=== PATIENT | male | born 1985 | race Caucasian/White ===

== ENCOUNTER → 2022-06-25 | Day surgery (SDC) | payer BC ==
[~2022-06-25] MED LIST: CREATINE100 GM PO; MULTI-VITAMIN1 EACH PO; PROPOFOL IV EMULSION 50 ML IV ONE
[2022-06-25 10:00] VITALS: BP 115/60
== END | disposition home or self-care (01) ==
LOC: OR 06:56
PROVIDERS: ATTEND Internal Medicine Gastroenterology
DX: Z12.11 Encounter for screening for malignant neoplasm of colon (principal); K57.30 Diverticulosis of large intestine without perforation or abscess without bleeding; K64.8 Other hemorrhoids; Z71.3 Dietary counseling and surveillance; Z68.25 Body mass index [BMI] 25.0-25.9, adult; Z86.16 Personal history of COVID-19; Z80.0 Family history of malignant neoplasm of digestive organs
CPT/HCPCS: 45378; J2704